=== PATIENT | female | born 1980 | race African-American/Black ===

== ENCOUNTER → 2020-08-06 | Outpatient (CLI) | payer BC ==
[~2020-08-06] MED LIST: ACET1TAB33 PO; ALBU2.5V8 INH; FERR-36 PO; LISI1TAB37 PO; NORG1TAB13 PO
== END ==
LOC: LAB 09:52
PROVIDERS: ATTEND Specialist
DX: Z01.812 Encounter for preprocedural laboratory examination (principal); Z20.822 Contact with and (suspected) exposure to COVID-19
CPT/HCPCS: U0003

== ENCOUNTER 2020-08-10 09:52 | Day surgery (SDC) | payer BC ==
--- NOTE | 2020-08-10 06:54 | HP ---
ADMIT DATE: HISTORY OF PRESENT ILLNESS: The patient is referred by Dr. Lubna Parada because of a mass of the left back. Apparently, it has been there for at least 2 months that she knows of it, but does not know if it has been there longer. There is minimal tenderness there, but otherwise has no problems. She has no other symptoms and feels that it may be getting larger. PAST MEDICAL HISTORY: Shows she has had normal childhood diseases. She is treated for hypertension with lisinopril. She has no other diseases to her knowledge and has never had a tumor or other problems. ALLERGIES: SHE IS ALLERGIC TO PENICILLIN. FAMILY HISTORY: Noncontributory. REVIEW OF SYSTEMS: Negative. PHYSICAL EXAMINATION: GENERAL: Shows an alert female in no acute distress. HEAD, EYES, NOSE, AND THROAT: Normal Grossly. CHEST: Bilaterally was clear to auscultation. HEART: Had a rate, which was regular at 72 beats per minute, but she did have a systolic murmur 3/6 mid systolic murmur heard at the mitral area. She does not know of having a murmur previously. EXTREMITIES: Grossly normal. Examination of the back was negative except for small of the back just to left of the midline, there is a mass, which was more transverse in nature and it is about 3-4 cm in size. She cannot tell us if it is above or beneath the fascia, but is definitely present. It is nontender. There is no evidence of redness or other abnormalities associated with it. IMPRESSION: 1. Mass of the back. 2. Hypertension. 3. Morbid obesity. PLAN: Plan is to remove the mass of back. She did have a CT and I consulted with radiologist. They did not see it, but she definitely has this mass, which appears to be either in the muscle or subcutaneous that is there and may be enlarging in size and she wishes to have it removed. We will proceed. We will plan general anesthesia. We do not know the nature of it and could not tell with a CT scan that was done at [facility]. GRIS DUNN MD DR: DIMAS/manuela JOB#: [id number] / [id number]
[~2020-08-10 09:52] MED LIST changes: -ACET1TAB33 PO; +HYDROmorphone 2 MG/ML VIAL IV PRN; +IV RINGERS,LACTATED 1000ML 1,000 ML IV SCH; +LIDOCAINE 1% PF 2 ML VIAL. ID PRN; +ONDANSETRON PF 4 MG/2 ML VIAL. IV PRN; +PROCHLORPERAZINE 10 MG/2 ML VIAL. IV PRN; +fentaNYL PF VIAL 100 MCG/2 ML VIAL IV PRN
[2020-08-10 11:02] LABS: BASO # 0.1 x10^3/uL (0.0-0.2); BASO % 1 % (0-3); EOS # 0.1 x10^3/uL (0.0-0.7); EOS % 2 % (0-3); HEMATOCRIT 34.1 % (36.0-47.0); LYMPH # 1.5 x10^3/uL (1.0-4.8); LYMPH % 27 % (24-48); MEAN CORPUSCULAR HEMOGLOBIN 26 pg (25-35); MEAN CORPUSCULAR HGB CONC 32 g/dL (31-37); MEAN CORPUSCULAR VOLUME 80 fL (79-100); MONO # 0.3 x10^3/uL (0.0-1.1); MONO % 6 % (0-9); NEUT # 3.6 x10^3/uL (1.8-7.7); NEUT % 65 % (31-73); PLATELET COUNT 243 x10^3/uL (140-400); RED BLOOD COUNT 4.26 x10^6/uL (3.50-5.40); WHITE BLOOD COUNT 5.6 x10^3/uL (4.0-11.0)
[2020-08-10 11:07] LABS: CALCIUM 8.5 mg/dL (8.5-10.1); CREATININE 0.6 mg/dL (0.6-1.0); GFR 132.7; POTASSIUM 3.3 mmol/L (3.5-5.1)
[2020-08-10 11:15] LABS: ALBUMIN 3.1 g/dL (3.4-5.0); ALBUMIN/GLOBULIN RATIO 0.7 (1.0-1.7); TOTAL BILIRUBIN 0.2 mg/dL (0.2-1.0); TOTAL PROTEIN 7.5 g/dL (6.4-8.2)
[2020-08-10] MEDS ORDERED: LIDOCAINE 2% PF 5 ML VIAL. ONE (11:36)
[2020-08-10] MEDS ORDERED: PROPOFOL 10 MG/ML (20ML) VIAL. IV ONE ×2 (11:36→13:08)
[2020-08-10] MEDS ORDERED: MIDAZOLAM HCL/PF 2 MG/2 ML VIAL. ONE (11:36)
[2020-08-10] MEDS ORDERED: fentaNYL PF VIAL 100 MCG/2 ML VIAL ONE ×2 (11:36→12:46)
[2020-08-10] MEDS ORDERED: ROCURONIUM 50 MG/5 ML VIAL. ONE (11:53)
[2020-08-10 12:07] LABS: ANISOCYTOSIS SLIGHT; PLT ESTIMATE ADEQUATE (ADEQUATE)
--- NOTE | 2020-08-10 12:13 | PDOC ---
SURGICAL PROGRESS NOTE DATE: 08/10/20 TIME: 12:11 Op Note Surgeon..............................................Fransisco Pre and post op diag.............................tumor left lower back Anesthesia..........................................general Procedure...........................................excision timor left lower back Drains................................................none Fluids.................................................see anesthesia sheet Blood loss...........................................10cc Condition............................................satisfactory Vital Signs Vital Signs Date Time Temp Pulse Resp B/P (MAP) Pulse Ox O2 Delivery O2 Flow Rate FiO2 08/10/20 10:42 97.8 61 20 96 97.8 08/10/20 10:36 184/86 Room Air Labs Laboratory Tests Test 08/10/20 10:40 White Blood Count 5.6 x10^3/uL (4.0-11.0) Red Blood Count 4.26 x10^6/uL (3.50-5.40) Hemoglobin 11.0 g/dL (12.0-15.5) Hematocrit 34.1 % (36.0-47.0) Mean Corpuscular Volume 80 fL (79-100) Mean Corpuscular Hemoglobin 26 pg (25-35) Mean Corpuscular Hemoglobin Concent 32 g/dL (31-37) Red Cell Distribution Width 26.0 % (11.5-14.5) Platelet Count 243 x10^3/uL (140-400) Neutrophils (%) (Auto) 65 % (31-73) Lymphocytes (%) (Auto) 27 % (24-48) Monocytes (%) (Auto) 6 % (0-9) Eosinophils (%) (Auto) 2 % (0-3) Basophils (%) (Auto) 1 % (0-3) Neutrophils # (Auto) 3.6 x10^3/uL (1.8-7.7) Lymphocytes # (Auto) 1.5 x10^3/uL (1.0-4.8) Monocytes # (Auto) 0.3 x10^3/uL (0.0-1.1) Eosinophils # (Auto) 0.1 x10^3/uL (0.0-0.7) Basophils # (Auto) 0.1 x10^3/uL (0.0-0.2) Platelet Estimate Adequate (ADEQUATE) Anisocytosis Slight Prothrombin Time 13.0 SEC (11.7-14.0) Prothromb Time International Ratio 1.0 (0.8-1.1) Activated Partial Thromboplast Time 34 SEC (24-38) Sodium Level 142 mmol/L (136-145) Potassium Level 3.3 mmol/L (3.5-5.1) Chloride Level 105 mmol/L (98-107) Carbon Dioxide Level 28 mmol/L (21-32) Anion Gap 9 (6-14) Blood Urea Nitrogen 9 mg/dL (7-20) Creatinine 0.6 mg/dL (0.6-1.0) Estimated GFR (Cockcroft-Gault) 132.7 BUN/Creatinine Ratio 15 (6-20) Glucose Level 89 mg/dL (70-99) Calcium Level 8.5 mg/dL (8.5-10.1) Total Bilirubin 0.2 mg/dL (0.2-1.0) Aspartate Amino Transf (AST/SGOT) 13 U/L (15-37) Alanine Aminotransferase (ALT/SGPT) 13 U/L (14-59) Alkaline Phosphatase 72 U/L (46-116) Total Protein 7.5 g/dL (6.4-8.2) Albumin 3.1 g/dL (3.4-5.0) Albumin/Globulin Ratio 0.7 (1.0-1.7) Laboratory Tests Test 08/10/20 10:40 White Blood Count 5.6 x10^3/uL (4.0-11.0) Red Blood Count 4.26 x10^6/uL (3.50-5.40) Hemoglobin 11.0 g/dL (12.0-15.5) Hematocrit 34.1 % (36.0-47.0) Mean Corpuscular Volume 80 fL (79-100) Mean Corpuscular Hemoglobin 26 pg (25-35) Mean Corpuscular Hemoglobin Concent 32 g/dL (31-37) Red Cell Distribution Width 26.0 % (11.5-14.5) Platelet Count 243 x10^3/uL (140-400) Neutrophils (%) (Auto) 65 % (31-73) Lymphocytes (%) (Auto) 27 % (24-48) Monocytes (%) (Auto) 6 % (0-9) Eosinophils (%) (Auto) 2 % (0-3) Basophils (%) (Auto) 1 % (0-3) Neutrophils # (Auto) 3.6 x10^3/uL (1.8-7.7) Lymphocytes # (Auto) 1.5 x10^3/uL (1.0-4.8) Monocytes # (Auto) 0.3 x10^3/uL (0.0-1.1) Eosinophils # (Auto) 0.1 x10^3/uL (0.0-0.7) Basophils # (Auto) 0.1 x10^3/uL (0.0-0.2) Platelet Estimate Adequate (ADEQUATE) Anisocytosis Slight Prothrombin Time 13.0 SEC (11.7-14.0) Prothromb Time International Ratio 1.0 (0.8-1.1) Activated Partial Thromboplast Time 34 SEC (24-38) Sodium Level 142 mmol/L (136-145) Potassium Level 3.3 mmol/L (3.5-5.1) Chloride Level 105 mmol/L (98-107) Carbon Dioxide Level 28 mmol/L (21-32) Anion Gap 9 (6-14) Blood Urea Nitrogen 9 mg/dL (7-20) Creatinine 0.6 mg/dL (0.6-1.0) Estimated GFR (Cockcroft-Gault) 132.7 BUN/Creatinine Ratio 15 (6-20) Glucose Level 89 mg/dL (70-99) Calcium Level 8.5 mg/dL (8.5-10.1) Total Bilirubin 0.2 mg/dL (0.2-1.0) Aspartate Amino Transf (AST/SGOT) 13 U/L (15-37) Alanine Aminotransferase (ALT/SGPT) 13 U/L (14-59) Alkaline Phosphatase 72 U/L (46-116) Total Protein 7.5 g/dL (6.4-8.2) Albumin 3.1 g/dL (3.4-5.0) Albumin/Globulin Ratio 0.7 (1.0-1.7) Justicifation of Admission Dx: Justifications for Admission: Justification of Admission Dx: Yes GRIS DUNN MD Aug 10, 2020 12:13
[2020-08-10] MEDS ORDERED: DEXAMETHASONE SOD PHOS 4 MG/ML VIAL ONE (12:40)
[2020-08-10] MEDS ORDERED: ONDANSETRON PF 4 MG/2 ML VIAL. ONE (12:40)
[2020-08-10] MEDS ORDERED: NEOSTIGMINE METHYLSULFATE 5 MG/5 ML SYRINGE. ONE (12:54)
[2020-08-10] MEDS ORDERED: GLYCOPYRROLATE 1 MG/5 ML VIAL. ONE (12:54)
[2020-08-10] MEDS ORDERED: SEVOFLURANE 61 TO 120 MINUTES. IH ONE (13:08)
[2020-08-10] MEDS ORDERED: PROCHLORPERAZINE 10 MG/2 ML VIAL. ONE (13:49)
--- NOTE | 2020-08-10 13:58 | DISCH ---
DISCHARGE INSTRUCTIONS Condition on Discharge Condition on Discharge: Stable Activity After Discharge Activity Instructions for Disc: Activity as tolerated Diet after Discharge Diet after Discharge: [place] Wound Incision Care Other wound/incision instructi: leave dressing on until I see her post op....change if it comes offf Follow-Up Follow up with: Dr. patino 8 days..paco and make GRIS Deleon MD Aug 10, 2020 13:58
[2020-08-10] MEDS ORDERED: ACETAMINOPHEN/CODEINE 300/30MG TABLET. PO ONE (14:00)
[2020-08-10] MEDS ORDERED: MORPHINE SULFATE 2 MG/ML VIAL. ONE (14:00)
[2020-08-10] MEDS: MORPHINE SULFATE 2 MG/ML VIAL. IV PRN ×2 (14:03→14:13)
[2020-08-10] MEDS ORDERED: ACET1TAB33 PO (14:07)
[2020-08-10 14:35] VITALS: BP 168/88
--- NOTE | 2020-08-10 17:21 | OP ---
DATE OF SURGERY: SURGEON: Kush Dunn MD. PREOPERATIVE DIAGNOSIS: Mass, left back, small of the back. POSTOPERATIVE DIAGNOSIS: Mass, left back, small of the back. ANESTHESIA: General. PROCEDURE: Excision of mass of back. TECHNIQUE: Under general anesthesia, the area was properly prepped and draped in routine fashion. It had been marked prior to surgery, so knew the location of the mass. It was in the small of the back just to the left of midline. We therefore made a transverse incision over the area and carried it down through the skin. We did this with a 15 blade. Once we got into the subcutaneous, we went down deep into the subcutaneous and were able to see the mass the very top of it. We did some of the dissection with cautery and some with Metzenbaum. We opened the capsule up over the mass and could see that it was yellowish in color. I used my finger to dissect around the mass, which was about 4-5 cm in diameter. It appeared to be attached and the cautery was used to divide what appeared to be the blood supply. The mass was totally removed grossly and this area was inspected. There was no further bleeding and 3-0 Vicryl was used to close the deep tissues and it should be noted that this went down to the fascia and just into the fascia just a little bit. This was approximated with 3-0 interrupted Vicryl. The deeper structures and Ronna's were approximated with 3-0 Vicryl and the subcuticular area, superficially was approximated with interrupted 4-0 Vicryl. We closed the skin using a 4-0 interrupted nylon suture. Sterile Tegaderm dressing was applied and the procedure was terminated. The incision was about a 6-8 cm in length. The blood loss was probably less than 5 mL. Fluids given can be obtained from the anesthesia sheet. No drains were used and the condition of the patient was satisfactory as she has returned to the recovery room. KUSH DUNN MD DR: DIMAS/manuela JOB#: [id number] / [id number]
--- NOTE | 2020-08-13 09:01 | PATHOLOGY ---
[facility] Accession Number: [id number] . 01 Material submitted: . back - LEFT BACK MASS. Modifiers: left . 02 Diagnosis: Segment of fibroadipose tissue, left back mass excision: - Lipoma. (JPM:anna; 08/12/2020) MBR 08/12/2020 1034 Local . 02 Electronically signed: . Xiang Theodore MD, Pathologist NPI- [id number] . 01 Gross description: . The specimen is received in formalin, labeled "Cathy Fernando, left back mass". Received is a segment of yellow-moore lobulated tissue measuring 4.5 x 2.8 x 2.2 cm in greatest dimensions. Sectioning reveals bright yellow cut surfaces with no grossly distinct nodules or lesions. The specimen is submitted representatively in cassette A1. (CAA; 08/11/2020) QA/[facility] 08/11/2020 1142 Local . 02 Pathologist provided ICD-10: D17.1 . 02 CPT . 839092 Specimen Comment: A courtesy copy of this report has been sent to [phone] Specimen Comment: Report sent to Specimen Comment: A duplicate report has been generated due to demographic updates. Performed at: 01 [facility] [address], [place], [place] [id number] MD Riki bIarra MD Phone: [phone] Performed at: 02 [facility] [address], [place] [id number] MD Xiang Theodore MD Phone: [phone]
== END 2020-08-10 16:20 | disposition home or self-care (01) ==
LOC: SURG 09:52 → EDUNIT# 12:00 → SURG 16:20
PROVIDERS: ATTEND Specialist
DX: R22.2 Localized swelling, mass and lump, trunk (principal); D17.1 Benign lipomatous neoplasm of skin and subcutaneous tissue of trunk; I10 Essential (primary) hypertension; J45.909 Unspecified asthma, uncomplicated; Z90.49 Acquired absence of other specified parts of digestive tract; Z98.890 Other specified postprocedural states; Z79.899 Other long term (current) drug therapy; Z88.0 Allergy status to penicillin
CPT/HCPCS: 21931; 36415; 80053; 85025; 85610; 85730; J0780; J1100; J2250; J2270; J2405; J2704; J2710; J3010; J3490